=== PATIENT | male | born 1960 | race Caucasian/White ===

== ENCOUNTER 2016-09-13 06:00 | Day surgery (SDC) | payer OTHER ==
[2016-09-13] MEDS ORDERED: Lactated Ringers 1,000 ML IV SCH (06:30)
[2016-09-13] MEDS ORDERED: DIPRIVAN 200 MG/20 ML IV ONE (08:00)
[2016-09-13] MEDS ORDERED: Ketamine HCl 50 MG/ML IJ ONE (08:00)
[2016-09-13 08:41] VITALS: O2SAT 96
[2016-09-13 09:31] VITALS: BP 121/93; PULSE 93
--- NOTE | 2016-09-13 12:02 | OP ---
SURGERY DATE/TIME: 09/13/2016 0658 PREOPERATIVE DIAGNOSIS: Screening colonoscopy. POSTOPERATIVE DIAGNOSIS: Normal colon. PROCEDURE: Colonoscopy. SURGEON: Atilio Rodriguez M.D. ANESTHESIA: MAC by Ross Eller CRNA. ESTIMATED BLOOD LOSS: None. SPECIMENS: None. DESCRIPTION OF PROCEDURE: After informed written consent was obtained, the patient was taken to the endoscopy suite. He underwent monitored anesthesia and digital rectal exam showed normal sphincter tone and no internal lesions. The scope was inserted in the rectum and sequentially the entire colonic mucosa was traversed. The level of cecum was reached and verified with direct visualization of ileocecal valve. Upon withdrawal careful mucosal inspection revealed no obvious abnormalities. The prep was noted to be fair as there was fair amount of liquidy stool throughout the length of the colon. The patient was noted to have scattered diverticulosis mostly concentrated in the sigmoid colon. Prior to withdrawal retroflexion showed no internal lesions. The scope was removed and the patient was transferred to the recovery room in excellent condition.
== END 2016-09-13 09:05 | disposition home or self-care (01) ==
LOC: SDC 06:00
PROVIDERS: ATTEND Family Medicine
PROC: 0DJD8ZZ Inspection of Lower Intestinal Tract, Via Natural or Artificial Opening Endoscopic (ICD-10-PCS; principal; 2016-09-13)
DX: Z12.11 Encounter for screening for malignant neoplasm of colon (principal)
CPT/HCPCS: 00810; J2704

== ENCOUNTER 2020-12-02 19:17 | Emergency (ER) | payer OTHER ==
[2013-06-01 18:46] VITALS: BP 125/75
--- NOTE | 2020-12-02 19:19 | ERPHSYRPT ---
- History of Present Illness Time Seen by Provider: 12/02/20 19:19 Source: patient Allergies/Adverse Reactions: No Known Drug Allergies Allergy (Verified 09/13/16 06:10) Home Medications: Calcium Carbonate [Calcium] 600 mg PO BID 06/01/13 [History] Lansoprazole [Prevacid] 30 mg PO DAILY 06/01/13 [History] Amitriptyline HCl 25 mg [Elavil 25 mg] 25 mg PO TID 09/12/16 [History] Docusate Sodium [Stool Softener] 50 mg PO DAILY 09/12/16 [History] Pregabalin [Lyrica] 75 mg PO BID 09/12/16 [History] Hx Influenza Vaccination/Date Given: Yes Hx Pneumococcal Vaccination/Date Given: No - Past Medical History Pertinent Past Medical History: Yes Neurological History: No Pertinent History ENT History: No Pertinent History Cardiac History: No Pertinent History Respiratory History: No Pertinent History Endocrine Medical History: No Pertinent History Musculoskeletal History: Other GI Medical History: No Pertinent History History: No Pertinent History Psycho-Social History: No Pertinent History Male Reproductive Disorders: No Pertinent History Other Medical History: pt has had 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
[2020-12-02] MEDS ORDERED: XYLOCAINE 1% HCL 20 ML MDV ONE (19:21)
== END 2020-12-02 19:25 | disposition left against medical advice (07) ==
LOC: ED 19:17
DX: Z53.9 Procedure and treatment not carried out, unspecified reason (principal)